=== PATIENT | female | born 1970 | race Caucasian/White ===

== ENCOUNTER 2020-07-17 17:16 | Observation (INO) ==
[2020-07-17 17:56] LABS: Basophils % 0.1 %; Eosinophils # 0.1 K/mcL (0.0-0.6); Eosinophils % 0.7 %; Hematocrit 41.3 % (35.3-44.9); Hemoglobin 13.1 g/dL (11.5-15.4); Immature Granulocytes % 0.5 % (0-4); Lymphocytes # 1.4 K/mcL (0.6-4.6); Lymphocytes % 9.6 %; Mean Corpuscular HGB Conc 31.7 g/dL (31.6-35.5); Mean Corpuscular Hemoglobin 29.8 pg (28.0-33.3); Mean Corpuscular Volume 94.1 fL (83.0-100.0); Mean Platelet Volume 9.9 fL (9.4-12.4); Monocytes # 1.1 K/mcL (0.0-1.3); Monocytes % 7.6 %; Neutrophils # 11.8 K/mcL (1.6-8.9); Platelet Count 252 K/mcL (140-400); Red Blood Count 4.39 M/mcL (3.82-4.97); Red Cell Distribution Width 13.9 % (11.5-14.5); Segmented Neutrophils % 81.5 %; White Blood Count 14.5 K/mcL (4.3-11.1)
[2020-07-17] MEDS ORDERED: 0.9 % Sodium Chloride 1,000 ML IVC ONE (18:04)
[2020-07-17] MEDS ORDERED: Ondansetron 4 MG/2 ML VIAL IVP ONE (18:04)
[2020-07-17 18:19] LABS: Alanine Aminotransferase 20 Units/L (7-52); Albumin 4.4 g/dL (3.5-5.7); Albumin/Globulin Ratio 1.7 (1.1-2.2); Alkaline Phosphatase 41 Units/L (34-104); Amylase 31 Units/L (29-103); Aspartate Amino Transferase 14 Units/L (13-39); BUN/Creatinine Ratio 18 (6-26); Bilirubin,Direct 0.1 mg/dL (0.0-0.2); Bilirubin,Indirect 0.5 mg/dL (0.0-1.0); Bilirubin,Total 0.6 mg/dL (0.3-1.0); Blood Urea Nitrogen 11 mg/dL (6-20); Calcium 9.5 mg/dL (8.6-10.3); Carbon Dioxide 27 mEq/L (23-29); Chloride 103 mEq/L (98-107); Globulin 2.6 g/dL (2.4-3.5); Glucose 101 mg/dL (70-105); Lipase 9 Units/L (11-82); Osmolality,Calculated 282 (280-300); Potassium 3.8 mEq/L (3.5-5.1); Sodium 136 mEq/L (136-145); eGFR For African Americans > 60 (> 60); eGFR For Non-African Americans > 60 (> 60)
[2020-07-17] MEDS ORDERED: MetroNIDAZOLE 500 MG/100 ML 500 MG/100 ML BAG IVPB ONE (19:42)
[2020-07-17] MEDS ORDERED: cefTRIAXone 1,000 MG in 0.9 % Sodium Chloride Mini Bag 100 ML IVPB ONE (19:42)
[2020-07-17] MEDS ORDERED: cefTRIAXone 1,000 MG in Water for inj. (sterile) 10 ML IVP ONE (20:00)
[2020-07-17] MEDS ORDERED: *HR* FentaNYL (PF) 100 MCG/2 ML VIAL IVP ONE (20:11)
[2020-07-17 20:38] LABS: Bilirubin,Urine Negative (Negative); Blood,Urine Negative (Negative); Clarity,Urine Clear (Clear); Color,Urine Light-Yellow (Yellow); Glucose,Urine (UA) Normal (Normal); Ketones,Urine 40 mg/dL (Negative); Leukocyte Esterase,Urine Negative (Negative); Nitrite,Urine Negative (Negative); PH,Urine 6.5 pH Units (5.0-8.0); Protein,Urine Negative (Neg-Trace); Urobilinogen,Urine Normal (Normal)
[2020-07-17] MEDS ORDERED: Lidocaine -MPF 2% 2 ML VIAL ONE (20:38)
[2020-07-17] MEDS ORDERED: *HR* Rocuronium Bromide 50 MG/5 ML VIAL ONE (20:38)
[2020-07-17] MEDS ORDERED: Ondansetron 4 MG/2 ML VIAL ONE (20:38)
[2020-07-17] MEDS ORDERED: Dexamethasone 4 MG/ML VIAL ONE (20:38)
[2020-07-17] MEDS ORDERED: *HR* FentaNYL (PF) 100 MCG/2 ML VIAL ONE (20:39)
[2020-07-17] MEDS ORDERED: *HR* Propofol 200 MG/20 ML VIAL IVP ONE (20:39)
[2020-07-17] MEDS ORDERED: CefOXitin 1,000 MG VIAL ONE (20:40)
[2020-07-17] MEDS ORDERED: *HR* HYDROcodone/Acet 5/325 mg TABLET PO PRN (20:47)
[2020-07-17] MEDS ORDERED: *HR* Midazolam HCl 2 MG/2 ML VIAL IVP PRN (20:47)
[2020-07-17] MEDS ORDERED: Ondansetron 4 MG/2 ML VIAL IVP PRN ×2 (20:47→22:53)
[2020-07-17] MEDS ORDERED: Promethazine 6.25 MG in Water for inj. (sterile) 20 ML IVPB PRN (20:47)
[2020-07-17] MEDS ORDERED: *HR* Labetalol 20 MG/4 ML SYRINGE IVP PRN (20:47)
[2020-07-17] MEDS ORDERED: Acetaminophen IV 1,000 MG/100 ML BAG IVPB ONE (20:56)
[2020-07-17] MEDS ORDERED: Ketorolac 30 MG/ML VIAL ONE (21:39)
[2020-07-17] MEDS: *HR* HYDROmorphone PF 0.5 MG/0.5 ML SYRINGE IVP PRN ×4 (22:04→22:29)
[2020-07-17] MEDS ORDERED: 0.9 % Sodium Chloride 1,000 ML IVC SCH (22:53)
[2020-07-18] MEDS: *HR* HYDROcodone/Acet 5/325 mg TABLET PO PRN ×3 (01:35→14:50)
[2020-07-18] MEDS: cefOXitin 2,000 MG in Water for inj. (sterile) 20 ML IVP SCH ×2 (03:26→12:05)
[2020-07-18 10:54] VITALS: BP 107/68
== END 2020-07-18 14:58 | disposition home or self-care (01) ==
LOC: 3ANU 17:16 → EMEROOARM 17:16 → 3ANU 20:47
PROVIDERS: ADMIT Surgery; ATTEND Surgery